=== PATIENT | male | born 1965 | race Caucasian/White ===

== ENCOUNTER 2020-12-01 07:31 | Outpatient (CLI) | payer SELFPAY ==
[2020-12-01 08:11] LABS: Alanine Aminotransferase 44 U/L (4-50); Albumin Level 4.5 g/dL (3.5-5.1); Alkaline Phosphatase 56 U/L (38-126); Anion Gap 6 mmol/L (8-16); Aspartate Amino Transferase 39 U/L (17-59); Bilirubin,Total 0.5 mg/dL (0.2-1.3); Blood Urea Nitrogen 16 mg/dL (9-20); Calcium 9.4 mg/dL (8.4-10.2); Carbon Dioxide 32 mmol/L (22-30); Chloride 99 mmol/L (98-107); Cholesterol 134 mg/dL (0-200); Estimated Glomerular Filt Rate > 60; Glucose 253 mg/dL (65-110); HDL Direct 42 mg/dL; Hemoglobin A1C 7.9 % (<5.7); Potassium 4.3 mmol/L (3.4-5.0); Sodium 137 mmol/L (137-145); Triglycerides 203 mg/dL (<150)
[2020-12-01 08:22] LABS: LDL Cholesterol Direct 52 mg/dL
[2020-12-01 08:42] LABS: Prostate Specific Antigen 1.2 ng/mL (< OR = 4.0)
== END 2020-12-01 07:32 | disposition home or self-care (01) ==
LOC: ANHLAB 07:36
DX: Z12.5 Encounter for screening for malignant neoplasm of prostate (principal)
CPT/HCPCS: 36415; 80053; 80061; 83036; 84153; G0103

== ENCOUNTER 2022-05-26 14:20 | Emergency (ER) | payer OTHER, SELFPAY ==
--- NOTE | ~2022-05-26 | XR_ITS ---
EXAMINATION: XR chest 2V 05/26/2022 14:48 INDICATION: Shortness of breath. Cough. PROCEDURE: 2 view chest COMPARISON: No prior studies for comparison. FINDINGS: The lungs are clear. The cardiomediastinal silhouette is within normal limits. There are no pleural effusions. There is no pneumothorax suspected. IMPRESSION: 1: NO ACUTE CARDIOPULMONARY DISEASE. Reviewed, dictated and finalized at location B. [employer]
--- NOTE | 2022-05-26 14:28 | ED.URI ---
HPI - URI/Sore Throat General Chief Complaint: Upper Respiratory Infection Stated Complaint: sob,congestion Time Seen by Provider: 05/26/22 14:29 Source: patient Mode of arrival: ambulatory Limitations: no limitations History of Present Illness HPI Narrative: Mr. Yancey is a 57-year-old male patient presenting to the clinic today with complaints of shortness of breath and congestion x4 weeks. He reports he has been coughing up initially green phlegm however is Chaney brown phlegm now. He denies any fever or chills. States that he is having a lot of fatigue and dyspnea with exertion. He denies any chest pain. Has recent UT with stents placed over Day of last year. SpO2 is 97% on room air and he is speaking in full sentences. MD elicited complaint: sore throat and nasal congestion Related Data Home Medications Medication Instructions Recorded Confirmed allopurinol 300 mg tablet 300 mg PO DAILY 05/26/22 05/26/22 aspirin 81 mg capsule 81 mg PO DAILY 05/26/22 05/26/22 atorvastatin 20 mg tablet 20 mg PO DAILY 05/26/22 05/26/22 clopidogrel 75 mg tablet 75 mg PO DAILY 05/26/22 05/26/22 dapagliflozin 10 mg tablet 10 mg PO DAILY 05/26/22 05/26/22 diazepam 10 mg tablet 10 mg PO DAILY 05/26/22 05/26/22 gabapentin 300 mg capsule 300 mg PO TID 05/26/22 05/26/22 glipizide 5 mg tablet 5 mg PO DAILY 05/26/22 05/26/22 isosorbide mononitrate 30 mg 30 mg PO DAILY 05/26/22 05/26/22 tablet,extended release 24 hr lidocaine 5 % topical patch 1 patch transdermal DAILY 05/26/22 05/26/22 metformin 1,000 mg tablet 1,000 mg PO DAILY 05/26/22 05/26/22 metoprolol tartrate 25 mg tablet 25 mg PO DAILY 05/26/22 05/26/22 nitroglycerin 0.4 mg sublingual 0.4 mg sublingual PRN PRN Chest 05/26/22 05/26/22 tablet Pain oxycodone-acetaminophen 10 mg-325 1 tablet PO DAILY PRN Pain 05/26/22 05/26/22 mg tablet pantoprazole 20 mg tablet,delayed 40 mg PO DAILY 05/26/22 05/26/22 release Allergies Allergy/AdvReac Type Severity Reaction Status Date / Time No Known Allergies Allergy Verified 05/26/22 14:41 Review of Systems Review of Systems: Pertinent positives per HPI. Patient denies any fever, chills, rash, headache, visual changes, dizziness, chest pain, palpitations, nausea, vomiting, diarrhea, constipation, abdominal pain, or any urinary issues. PMFSH Comments At the time of my signature, I reviewed and agree with the nursing past medical, surgical, social, and family history. There is no relevant family history pertinent to the patient complaint. Exam Narrative: General: Well-developed, well nourished, in no apparent distress Head: Normocephalic, atraumatic Eyes: Pupils equally round and reactive to light bilaterally, EOM intact, sclera and conjunctive clear, no discharge, lids normal Ears: TMs intact and clear, ear canals clear, no drainage, grossly hearing normal. Nose: Nares patent, clear nasal discharge, no inflammation, no sinus tenderness. Mouth: Oral pharynx without lesions or masses, good dentition, MMM. Neck: Supple, trachea midline, no enlargement of anterior or posterior cervical nodes, no thyroid masses or goiter palpable. Cardio: Regular rate and rhythm, s1 and s2 normal, no murmur appreciated. Resp: Lungs sounds tight with expiratory wheezing, no rhonchi, rales, or rubs Course Course Emergency Course: Portions of this record may have been created with voice recognition software. Level of Care: Express Care Visit Vital Signs Vital signs: Vital Signs Temperature 36.5 C 05/26/22 14:36 Pulse Rate 72 05/26/22 14:36 Respiratory Rate 18 05/26/22 14:36 Blood Pressure 129/70 05/26/22 14:36 Pulse Oximetry 97 05/26/22 14:36 Oxygen Delivery Room Air 05/26/22 14:36 Temperature 36.5 C 05/26/22 14:36 Pulse Rate 72 05/26/22 14:36 Respiratory Rate 18 05/26/22 14:36 Blood Pressure 129/70 05/26/22 14:36 Pulse Oximetry 97 05/26/22 14:36 Oxygen Delivery Room Air 05/26/22 14:36 Vital
[2022-05-26 14:36] VITALS: BP 129/70; PULSE 72; RESP 18; TEMP 36.5; O2SAT 97
[2022-05-26] MEDS: IPRATROPIUM BR 0.02% INH SOLN 0.5 MG/2.5 ML VIAL INHALATION (15:12)
[2022-05-26] MEDS: ALBUTEROL SULFATE NEB 2.5 MG/3 ML INH INHALATION (15:13)
[2022-05-26 15:15] VITALS: O2SAT 98
[2022-05-26 15:34] VITALS: O2SAT 98
[2022-05-26 15:35] VITALS: O2SAT 98
== END 2022-05-26 15:30 | disposition home or self-care (01) ==
PROVIDERS: Emergency Provider Nurse Practitioner Family
DX: J40 Bronchitis, not specified as acute or chronic (principal); E78.00 Pure hypercholesterolemia, unspecified; I10 Essential (primary) hypertension; Z95.5 Presence of coronary angioplasty implant and graft; K21.9 Gastro-esophageal reflux disease without esophagitis; E11.40 Type 2 diabetes mellitus with diabetic neuropathy, unspecified
CPT/HCPCS: 71046; 94640; 99213; G0463

== ENCOUNTER 2022-12-31 08:45 | Outpatient (RCR) | payer OTHER, SELFPAY ==
--- NOTE | 2022-11-10 17:03 | PTOPEVAL1 ---
Assessment and note entered by Tyler Yates, PT Evaluation Information Assessment Status Evaluation Diagnosis Arthritis, Cervical pain with radiculopathy Onset 04/30/22 Subjective Information Reports that he has had numbness in luis a hand into his ring and little finger. He is also having pain in his tailbone and swelling in his feel. He does not feel that he is overall as stable as he used to be. Denies any falls recently. 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 He wakes up in the mornings with occasional numbness in the arms. Assessment PT Clinical Summary Patient presents with decreased cervical mobility, postural deficits, limited hip mobility, and postural weakness in spine. He will benefit from skilled therapy to address these deficits and improve postural control and decompress spine both cervical and lumbar for pain relief and improvement of ADL performance. Plan of Care Interventions Electrical Stimulation,Hot Pack/Cold Pack,Manual Therapy,Neuro Re-education,Therapeutic Activities, Therapeutic Exercise PT Services Indicated Yes Treatment Frequency and 2x/week for 4 weeks Duration These treatments will address the objective and functional deficits as defined above. The patient will be advanced safely and appropriately in order for the patient to progress towards his/her prior level of function. Additional exercises will be introduced and as well as a comprehensive home exercise program upon discharge, if needed, ?to ensure carryover of functional gains achieved in the clinic. This treatment plan has been reviewed and agreement upon by the patient.
--- NOTE | 2022-11-10 17:03 | OPREHPOC ---
Outpatient Therapy Plan of Care This is a Multidisciplinary Plan of Care that may contain components documented by all disciplines (PT, OT, and ST.) PT Problem 1 PT Problem #1 Knowledge Deficit PT Goal 1 Goal [place] with postural and hip mobility HEP Target Visit 4 PT Problem 2 PT Problem #2 Pain PT Goal 1 Goal Report no pain when laying in bed for 4 hours for improved in quality and duration of sleep Target Visit 8 PT Problem 3 PT Problem #3 Impaired Range of Motion PT Goal 1 Goal Demonstrate 60 degrees of luis a cervical ROM for improved facet glide and functional field of view PT Goal 2 Goal Improve luis a hip abduction to 40 degrees for reduced pelvic pull to reduce low back strain Target Visit 8 PT Problem 4 PT Problem #4 Impaired Flexibility PT Goal 1 Goal Improve luis a piriformis restriction to minimal for reduced abnormal hip rotation pull Target Visit 8
--- NOTE | 2022-11-21 16:01 | PCPTNOTE ---
Pt had to cancel due to insurance issues.
--- NOTE | 2022-12-31 09:45 | PTOPPROG ---
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; is self employed; due to feet hurting get off machine every 1 & 1/ 2 to 2 hours to walk; had xrays of neck and back- - was told arthritis and normal wear on joints; PAIN: cervical: pain rating 10/10 all the time, 90% time have R and L 3,4,5 fingers tingling; sleep 3 hours at time in recliner due to arm pain and numbness back: pain tail bone up to shoulder blades 8-10/10 all the time; pain increases with working; pain decrease: taking pain med,percocet 3x/day; use heat; Assessment PT Clinical Summary Miguel Angel has received 3 PT sessions from Nov 10 to called and canceled 5 appointments, then to dept today for reassessment. Oswestry self assessment functional score of 56% limitation in activity level. He has multiple areas of pain---neck with radicular numbness into R and L fingers, R shoulder pain, low back pain and R and L hip pain. Discussed with him that we need to begin treatment on one body area--he wants treatment for his back. Also discussed with him for care and treatment, his attendance needs to be consistant. He reports busy lifestyle--work, raising grandchildren and playing in a band limit his time to come for therapy. But he will try to come more often. With assessment of his back, he has poor standing position of his trunk, with decreased flexiblity of hips and trunk extension, weakness of trunk and hips. Pain is increased with trunk extension, R hip IR and flexion, L SLR. Skilled PT services are indicated for treatment to
--- NOTE | 2022-12-31 09:45 | OPREHPOC ---
Outpatient Therapy Plan of Care This is a Multidisciplinary Plan of Care that may contain components documented by all disciplines (PT, OT, and ST.) PT Problem 1 PT Problem #1 Knowledge Deficit PT Goal 1 Goal [place] with postural and hip mobility HEP Target Visit 4 Progress Not Met Comment 12-31-22 progress continue towards goal PT Problem 2 PT Problem #2 Pain PT Goal 1 Goal Report no pain when laying in bed for 4 hours for improved in quality and duration of sleep Target Visit 8 Progress Not Met Comment 12-31-22 progress 1* pt report back pain at 7/10 at worst 2* self assessment Oswestry rating of 48% limitation in activity 3* pt report getting out of his equiptment every 1 hour PT Problem 3 PT Problem #3 Impaired Range of Motion PT Goal 1 Goal Demonstrate 60 degrees of luis a cervical ROM for improved facet glide and functional field of view Progress Met Comment 12-31-22 progress NEW GOALS: no pain increase reported with 1* supine R hip flexion 2* supine R hip IR 3* R hamstring stretch SLR to 70' 4* L hamstring stetch/SLR to 70' 5* supine piriformis stretch, R=L ROM/ cross midline of body PT Goal 2 Goal Improve luis a hip abduction to 40 degrees for reduced pelvic pull to reduce low back strain Target Visit 8 PT Problem 4 PT Problem #4 Impaired Flexibility PT Goal 1 Goal Improve luis a piriformis restriction to minimal for reduced abnormal hip rotation pull Target Visit 8 Progress Not Met Comment 12-31-22 progress ROM addressed in above goal PT Problem 5 PT Problem #5 Impaired Strength PT Goal 1 Goal 12-31-22 progress
--- NOTE | 2023-01-05 14:42 | PCPTNOTE ---
LATE ENTRY: pt called and canceled appointments on: Nov 28,6,8,14;
--- NOTE | 2023-01-26 13:34 | PTOPDC ---
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 Patient will be discharged from therapy at this time. Please refer to last progress note for discharge status. Plan of Care PT Services Indicated Yes
== END 2023-01-26 14:25 | disposition home or self-care (01) ==
LOC: ANHPT 08:45
DX: M19.90 Unspecified osteoarthritis, unspecified site (principal)
CPT/HCPCS: 97110; 97140; 97161; 97530